=== PATIENT | male | born 1975 | race Caucasian/White ===

== ENCOUNTER → 2021-06-29 02:21 | Outpatient (CLI) | payer OTHER, SELFPAY ==
[2021-06-29 16:44] LABS: SARS-CoV-2 RNA PCR Negative
== END ==
PROVIDERS: PCP Family Medicine; Visit Provider Internal Medicine Gastroenterology
DX: Z01.812 Encounter for preprocedural laboratory examination (principal)
CPT/HCPCS: C9803; U0003; U0005

== ENCOUNTER 2021-07-02 00:47 | Day surgery (SDC) | payer OTHER, SELFPAY ==
[2021-06-23 15:43] VITALS: BMI 32.4
[2021-07-02 06:22] VITALS: BP 148/83; PULSE 102; RESP 17; TEMP 36.2; O2SAT 99
[2021-07-02] MEDS: LACTATED RINGERS 1,000 ML 150 ML IV CONT (06:30)
--- NOTE | 2021-07-02 06:59 | P.PNAN_ITS ---
Anes - Initial Pre Proc Eval Procedure: Operation Date: 07/02/21 07:30 Proposed Procedures p Colonoscopy - Audi Gibbs MD Date/Time: 07/02/21 06:59 Surgeon: Audi Gibbs MD Pre Op Diagnosis: blood in stool Patient Data Age: 46 Gender: M Height: 1.78 m Weight: 103.2 kg Last Vital Signs Temp 36.2 C L 07/02/21 06:22 Pulse 102 H 07/02/21 06:22 Resp 17 07/02/21 06:22 BP 148/83 H 07/02/21 06:22 Pulse Ox 99 07/02/21 06:22 Allergies Allergy/AdvReac Type Severity Reaction Status Date / Time No Known Allergies Allergy Verified 07/02/21 06:17 Home Medications Medication Instructions Recorded Confirmed Type omeprazole 20 mg capsule,delayed 20 mg PO DAILY 04/02/21 07/02/21 History release rosuvastatin 5 mg tablet 5 mg PO DAILY #30 tablet 06/22/21 07/02/21 Rx Patient hx anesthesia problems: other (awaken during egd) Family hx anesthesia problems: none Results Review: All pre-operative results and documents have been reviewed as part of the pre-operative evaluation. [facility] Past Medical History Medical History GERD (gastroesophageal reflux disease) Hyperlipidemia Pre-diabetes Family History Family History Grandparent Family history of glaucoma Family history of cardiovascular disease Family history of lung cancer Mother Hypertension Family history of elevated blood lipids Family history of Alzheimer's disease Social History Social History Second hand tobacco smoke exposure: No Alcohol intake: current Drinks per week: 1 Alcohol use details: social Substance use: never Substance use type: does not use Living arrangements: with family Gender identity (if verbalized by the patient): Male Spiritual care concerns: No Anes - Eval Final PreProcedure Day of Procedure 07/02/21 06:59 Patient weight: overweight Heart: regular rate and rhythm Lungs: clear to auscultation Airway: Mallampati scale class II Neurological: alert and oriented Last oral intake: >/= 8 hours ASA classification: II Emergent: no Anesthetic plan: proceed Anesthesia type and monitoring: general GIVS and standard monitoring Results Review: All pre-operative results and documents have been reviewed as part of the pre-operative evaluation. Informed Consent: The patient's anesthetic plan and its attendant risks and benefits were discussed with the patient/family/POA. Questions were solicited and answers provided to the satisfaction of the patient/family/POA.
--- NOTE | 2021-07-02 07:21 | PM.HPGS ---
History of Present Illness History of Present Illness Consent: Risks, benefits, and alternatives have been discussed and questions answered. Patient agrees to proceed with procedure. Chief complaint: blood in stool Narrative: Hang Sin is a 46 year old male here for first colonoscopy, several months ago had one episode of hematochezia. Review of Systems Constitutional: Constitutional: Denies headache(s) and Denies weakness Eyes: Eyes: Denies blurry vision ENT: Reports Normal hearing present, Denies headache(s) and Denies neck pain Cardiovascular: Cardiovascular: Denies chest pain and Denies dyspnea Respiratory: Respiratory: Denies dyspnea Gastrointestinal: Gastrointestinal: Reports no additional gastrointestinal complaints Genitourinary: Genitourinary: Denies dysuria Musculoskeletal: Musculoskeletal: Denies neck pain Integumentary/Breasts: Skin/Breast: Denies dry skin Neurologic: Reports Normal hearing present, Denies headache(s) and Denies weakness Psychiatric: Psychiatric: Denies anxiety Endocrine: Endocrine: Denies change in body appearance Hematologic/Lymphatic: Hematologic/Lymphatic: Denies easy bleeding Allergic/Immunologic: Allergic/Immunologic: Denies urticaria PMFSH Past Medical History Medical History GERD (gastroesophageal reflux disease) Hyperlipidemia Pre-diabetes Family History Family History Grandparent Family history of glaucoma Family history of cardiovascular disease Family history of lung cancer Mother Hypertension Family history of elevated blood lipids Family history of Alzheimer's disease Social History Social History Second hand tobacco smoke exposure: No Alcohol intake: current Drinks per week: 1 Alcohol use details: social Substance use: never Substance use type: does not use Living arrangements: with family Gender identity (if verbalized by the patient): Male Spiritual care concerns: No Meds Home Medications and Allergies Home Medications Medication Instructions Recorded Confirmed Type omeprazole 20 mg capsule,delayed 20 mg PO DAILY 04/02/21 07/02/21 History release rosuvastatin 5 mg tablet 5 mg PO DAILY #30 tablet 06/22/21 07/02/21 Rx Allergies Allergy/AdvReac Type Severity Reaction Status Date / Time No Known Allergies Allergy Verified 07/02/21 06:17 Vital Signs Vital Signs - 24 hr 07/02/21 06:22 Temperature 97.2 F L Pulse Rate 102 H Respiratory Rate 17 Blood Pressure 148/83 H Pulse Oximetry 99 Exam Const: General: comfortable and no acute distress HENMT: General nose exam: Normal nares present Eyes: General: appearance normal, both eyes and all related structures Neck: Neck: no JVD Resp: Auscultation: clear to auscultation bilaterally Cardio: Rate: regular rate Rhythm: regular rhythm GI: Inspection: non-distended GI Palp: Yes Soft to palpation Skin: General skin exam: normal color Neuro: General: gait normal Speech: normal speech Extrem: General: normal to inspection Psych: Mental Status: mental status grossly normal Assessment and Plan Assessment and plan (1) Hematochezia: Code(s): K92.1 - Melena Status: Acute Assessment and Plan: colonoscopy
[2021-07-02 07:47] VITALS: BP 121/75; PULSE 112; RESP 17; O2SAT 95
[2021-07-02 07:57] VITALS: BP 127/91; PULSE 96; RESP 17; O2SAT 97
[2021-07-02 08:04] VITALS: BP 124/87; PULSE 90; RESP 17; O2SAT 95
== END 2021-07-02 08:27 | disposition home or self-care (01) ==
PROVIDERS: PCP Family Medicine; Visit Provider Internal Medicine Gastroenterology
PROC: 0DJD8ZZ Inspection of Lower Intestinal Tract, Via Natural or Artificial Opening Endoscopic (ICD-10-PCS; CPT 45378; principal; 2021-07-02 07:30)
DX: Z12.11 Encounter for screening for malignant neoplasm of colon (principal); D12.3 Benign neoplasm of transverse colon; K92.1 Melena; K64.8 Other hemorrhoids; K21.9 Gastro-esophageal reflux disease without esophagitis; E78.5 Hyperlipidemia, unspecified; R73.03 Prediabetes
CPT/HCPCS: 45380; 88305; C9803; J2001; J2704; J7120; U0003; U0005